=== PATIENT | female | born 1995 | race Caucasian/White ===

== ENCOUNTER 2016-12-22 21:57 | Emergency (ER) | payer OTHER ==
[2016-12-22] MEDS ORDERED: LET GEL TOPICAL 1 EA SYR TP ONE (22:01)
[2016-12-22 22:09] VITALS: BP 131/96; PULSE 65; RESP 16; TEMP 98.2; O2SAT 94
--- NOTE | 2016-12-22 22:25 | EDPHY ---
H & P Time Seen by Provider: 12/22/16 22:04 HPI/ROS: This patient fell while trail running [place] a dirt trail sustaining an abrasion to her lateral hip. She is concerned that she might need sutures and came in for evaluation. She reports only skin pain with no deeper pain to muscle or bone. She reports the pain is mild. The incident occurred shortly prior to arrival. She denies any other complaints she notes no exacerbating factors for her symptoms. She did not attempt clean it prior to arrival. ROS: Musculoskeletal:: No bony pain. Neuro: No numbness or tingling. No head injury. 5 point ROS is otherwise negative Past Medical/Surgical History: Healthy Smoking Status: Never smoked Physical Exam: Physical Exam Vital signs are normal. General: Pleasant 21 year old female, No acute distress HEENT: Atraumatic. Eyes: Pupils equal and react to light. Extraocular motions are intact. Lungs: No respiratory distress. Cardiac: Brisk capillary refill is intact throughout. Pulses are 2+ and symmetric in the affected extremity. Skin: 6 x 3 cm superficial abrasion contaminated with dirt to the left lateral hip with no underlying bony tenderness. There is a 2 cm superficial laceration that is not go entirely through the skin stroma and an is well-approximated with no active bleeding. Neuro: Alert and oriented x3 with no sensorimotor deficits. Constitutional: Initial Vital Signs Temperature (C) 36.8 C 12/22/16 22:07 Heart Rate 65 12/22/16 22:07 Respiratory Rate 16 12/22/16 22:07 Blood Pressure 131/96 H 12/22/16 22:07 O2 Sat (%) 94 12/22/16 22:07 O2 Delivery Mode Room Air Allergies/Adverse Reactions: No Known Allergies Allergy (Verified 12/22/16 22:05) Home Medications: Medication Instructions Recorded Implanon 01/11/16 MDM/Departure - MDM ED Course/Re-evaluation: Let solution applied with relief of pain. The wound is scrubbed by our tech, Steri-Strips applied to the superficial laceration and then Tegaderm applied over the top of the wound. Patient tolerated this well. She declined any analgesics while here. I counseled her regarding her abrasion and wound care plan. Discussion: Uncomplicated abrasion without evidence of underlying bony injury or other complications. - Depart Disposition: Home, Routine, Self-Care Clinical Impression: Hip abrasion Qualifiers: Encounter type: initial encounter Laterality: left Qualified Code(s): S70.212A - Abrasion, left hip, initial encounter Condition: Good Instructions: Abrasion (ED) Additional Instructions: Diagnosis: Left hip abrasion Plan: Ibuprofen and Tylenol for discomfort if needed Keep the Tegaderm in place for 2-4 days then remove, clean gently with warm soapy water and reapply a Tegaderm. Continue process until healed Return if he develops significant redness, discharge or other concerns for infection. Referrals: NONE *PRIMARY CARE P,. [Primary Care Provider] - As per Instructions
== END 2016-12-22 22:53 | disposition home or self-care (01) ==
LOC: CED 21:57
DX: S70.212A Abrasion, left hip, initial encounter (principal); W19.XXXA Unspecified fall, initial encounter; Y99.8 Other external cause status; Y93.02 Activity, running